=== PATIENT | male | born 1985 ===

== ENCOUNTER 2021-08-28 20:14 | Emergency (ER) | payer SELFPAY ==
[2021-08-28] MEDS ORDERED: SODIUM CHLORIDE 0.9% 500 ML 500 ML IV ONE (21:37)
[2021-08-28] MEDS ORDERED: PANTOPRAZOLE 40 MG INJ IV ONE (21:42)
[2021-08-28] MEDS ORDERED: ONDANSETRON 4 MG/2 ML INJ IV ONE (21:42)
--- NOTE | 2021-08-28 21:42 | Emergency Department Report ---
ED Abdominal Pain HPI - General Chief Complaint: Chest Pain Stated Complaint: NUMBNESS Time Seen by Provider: 08/28/21 21:18 Source: patient Mode of arrival: Ambulatory Limitations: Language Barrier - History of Present Illness Initial Comments: Patient is a 35-year-old male with no significant past medical history. Patient presented to the ER complaining of epigastric abdominal pain that radiated to the left upper quadrant area. Patient stated that pain started yesterday. Patient describes his pain as burning sensation and sharp. He de nied any similar symptoms before. Patient denied any fever or chills. He stated that he has mild nausea but no vomiting. He denied any diarrhea. No fever or chills. Patient stated that he drink alcohol yesterday. MD Complaint: abdominal pain -: days(s) (2) Location: epigastric Radiation: LUQ Migration to: no migration Severity: moderate Severity scale (0 -10): 4 Associated Symptoms: denies other symptoms, nausea. denies: vomiting - Related Data Allergies Allergy/AdvReac Type Severity Reaction Status Date / Time No Known Allergies Allergy Unverified 08/28/21 20:20 ED Review of Systems ROS: Stated complaint: NUMBNESS Other details as noted in HPI Comment: All other systems reviewed and negative Constitutional: denies: chills, fever Respiratory: denies: cough, shortness of breath, SOB with exertion, SOB at rest Cardiovascular: denies: chest pain, palpitations, dyspnea on exertion Gastrointestinal: abdominal pain, nausea. denies: vomiting, diarrhea, constipation, hematemesis, melena, hematochezia Musculoskeletal: denies: back pain Neurological: denies: headache, weakness, numbness, paresthesias, confusion, abnormal gait ED Past Medical Hx - Past Medical History Previous Medical History?: No - Surgical History Past Surgical History?: No - Social History Smoking Status: Never Smoker ED Physical Exam - General Limitations: Language Barrier General appearance: alert, in no apparent distress - Head Head exam: Present: atraumatic, normocephalic, normal inspection - Eye Eye exam: Present: normal appearance - ENT ENT exam: Present: normal exam, normal orophraynx, mucous membranes moist - Neck Neck exam: Present: normal inspection, full ROM. Absent: tenderness, meningismus - Respiratory Respiratory exam: Present: normal lung sounds bilaterally. Absent: respiratory distress, wheezes - Cardiovascular Cardiovascular Exam: Present: regular rate, normal rhythm, normal heart sounds - GI/Abdominal GI/Abdominal exam: Present: soft, normal bowel sounds. Absent: distended, tenderness, guarding, rebound, rigid, organomegaly, mass, bruit, pulsatile mass, hernia - Extremities Exam Extremities exam: Present: normal inspection, full ROM, normal capillary refill. Absent: tenderness, pedal edema, joint swelling, calf tenderness - Back Exam Back exam: Present: normal inspection, full ROM. Absent: CVA tenderness (R), CVA tenderness (L) - Neurological Exam Neurological exam: Present: alert, oriented X3, CN II-XII intact, normal gait, reflexes normal. Absent: motor sensory deficit - Psychiatric Psychiatric exam: Present: normal mood - Skin Skin exam: Present: warm, intact, normal color ED Course Vital Signs 08/28/21 08/28/21 08/28/21 20:21 20:52 23:01 Temperature 98.1 F Pulse Rate 107 H 66 Respiratory 24 18 Rate Blood Pressure 141/86 Blood Pressure 128/84 [Left] O2 Sat by Pulse 100 100 99 Oximetry ED Medical Decision Making - Lab Data Result diagrams: 08/28/21 21:49 08/28/21 21:49 - EKG Data -: EKG Interpreted by Nc EKG shows normal: sinus rhythm Rate: normal - EKG Data Interpretation: no acute changes - Radiology Data Radiology results: report reviewed - Medical Decision Making Patient is a 35-year-old male with no significant past medical history. Patient presented to the ER complaining of epigastric abdominal pain that radiated to the left upper quadrant area. Patient stated that pain started yesterday. Patient describes his pain as burning sensation and sharp. He denied any similar symptoms before. Patient denied any fever or chills. He stated that he has mild nausea but no vomiting. He denied any diarrhea. No fever or chills. Patient stated that he drink alcohol yesterday. EKG is unremarkable. Chest x-ray is negative for acute finding. Labs reviewed and is unremarkable including a negative troponin and lipase. Patient symptoms most likely related to gastritis however patient strongly advised to follow-up with his primary care physician for outpatient cardiac work-up and advised to return to the ER if he develop any new symptoms. Critical care attestation.: If time is entered above; I have spent that time in minutes in the direct care of this critically ill patient, excluding procedure time. ED Disposition Clinical Impression: Acute abdominal pain, Gastritis Disposition: HOME / SELF CARE / HOMELESS Is pt being admited?: No Condition: Stable Instructions: Gastritis, Adult, [id number], Abdominal Pain, Adult Referrals: PRIMARY CARE,MD [Primary Care Provider] - 3-5 Days KENRICK CALLOWAY MD [Staff Physician] - 3-5 Days Print Language: CZECH
--- NOTE | 2021-08-28 21:59 | XRay Report ---
CHEST 1 VIEW 08/28/2021 9:43 PM INDICATION / CLINICAL INFORMATION: chest pain. COMPARISON: None available. FINDINGS: SUPPORT DEVICES: None. HEART / MEDIASTINUM: No significant abnormality. LUNGS / PLEURA: No significant pulmonary or pleural abnormality. No pneumothorax. ADDITIONAL FINDINGS: No significant additional findings. IMPRESSION: 1. No acute findings. Signer Name: Charly Oliver DO Signed: 08/28/2021 9:55 PM Workstation Name: [id number]
[2021-08-28 22:08] LABS: Basophils % (Auto) 0.2 % (0.0-1.8); Eosinophils % (Auto) 0.4 % (0.0-4.3); Hematocrit 44.5 % (35.5-45.6); Hemoglobin 15.2 gm/dl (11.8-15.2); Lymphocytes # (Auto) 0.9 K/mm3 (1.2-5.4); Lymphocytes % (Auto) 8.8 % (13.4-35.0); Mean Corpuscular HGB Conc 34 % (32-34); Mean Corpuscular Volume 96 fl (84-94); Monocytes # (Auto) 0.8 K/mm3 (0.0-0.8); Monocytes % (Auto) 8.2 % (0.0-7.3); Platelet Count 266 K/mm3 (140-440); Red Blood Count 4.61 M/mm3 (3.65-5.03); Red Cell Distribution Width 12.9 % (13.2-15.2)
[2021-08-28 22:47] LABS: Bilirubin,Urine Negative (Negative); Blood,Urine Negative (Negative); Color,Urine Yellow (Yellow)
[2021-08-28 22:48] LABS: Urobilinogen,Urine < 2.0 mg/dL (<2.0)
[2021-08-28 22:48] LABS: Alanine Aminotransferase 45 units/L (7-56); Albumin 4.9 g/dL (3.9-5); BUN/Creatinine Ratio 21; Blood Urea Nitrogen 17 mg/dL (9-20); Hemolysis Index 12
[2021-08-28 22:54] LABS: Mucus,Urine FEW /HPF
[2021-08-28 22:56] LABS: RBC,Urine < 1.0 /HPF (0.0-6.0); WBC,Urine < 1.0 /HPF (0.0-6.0)
[2021-08-28 23:04] VITALS: BP 128/84
[2021-08-28 23:16] LABS: Bilirubin,Direct < 0.2 mg/dL (0-0.2)
--- NOTE | 2021-08-29 10:14 | Electrocardiograph Report ---
[facility] Test Date: 2021-08-28 Test Time: 20:25:53 Pat Name: Delmer WONG Department: Room: Gender: M [employer]: KERA : 1985 Requested By: BRAIN GOMEZ Order Number: [id number] Reading MD: Brannon Romero Measurements Intervals [place] Rate: 82 P: 8 KS: 147 QRS: -33 QRSD: 97 T: 33 QT: 359 QTc: 418 Interpretive Statements Sinus rhythm Left axis deviation RSR' IN V1 OR V2, PROBABLY NORMAL VARIANT ST elev, probable normal early repol pattern No previous ECG available for comparison Electronically Signed On 08-29-2021 10:13:52 EDT by Brannon Romero
== END 2021-08-28 23:45 | disposition home or self-care (01) ==
LOC: ED 20:14
DX: R10.9 Unspecified abdominal pain (principal); K29.70 Gastritis, unspecified, without bleeding
CPT/HCPCS: 36415; 71045; 80048; 80076; 81001; 83690; 84484; 85025; 93005; 96374; 96375; 99284; C9113; J2405; J7040; 96361